=== PATIENT | male | born 1945 | race Caucasian/White ===

== ENCOUNTER 2018-11-06 10:54 | Emergency (ER) | payer OTHER, MEDICARE ==
[~2018-11-06] VITALS: Ht 180.3 cm; Wt 96.0 kg
[~2018-11-06 10:54] MED LIST: AMLO5TAB PO; ATOR10TA87 PO; DULO-31 PO; GABA-532 PO; GLIP5TAB13 PO; HYDR-4353 PO; INSU100C4 SQ; LANTUS SUBCUT; LISI1TAB13 PO; MELO15TA13 PO; METF1000 PO; PRAZ5CAP2 PO
[2018-11-06 11:30] LABS: BASOPHILS # (AUTO) 0.1 X10'3 (0-0.2); BASOPHILS % (AUTO) 0.4 % (0-1); EOSINOPHILS # (AUTO) 0.2 X10'3 (0-0.9); EOSINOPHILS % (AUTO) 1.1 % (0-6); HEMATOCRIT 42.7 % (42.0-52.0); HEMOGLOBIN 14.1 g/dl (14.0-17.9); LYMPHOCYTES # (AUTO) 2.4 X10'3 (1.1-4.8); LYMPHOCYTES % (AUTO) 16.6 % (21-51); MEAN CORPUSCULAR HEMOGLOBIN 27.6 PG (27.0-31.0); MEAN CORPUSCULAR HGB CONC 33.1 g/dL (33.0-36.5); MEAN CORPUSCULAR VOLUME 83.4 FL (78-98); MEAN PLATELET VOLUME 8.1 FL (7.4-10.4); MONOCYTES % (AUTO) 6.8 % (2-12); NEUTROPHILS # (AUTO) 11.1 X10'3 (1.8-7.7); NEUTROPHILS % (AUTO) 75.1 % (42-75); PLATELET COUNT 375 X10'3 (140-440); RED BLOOD COUNT 5.12 X10'6 (4.70-6.10); RED CELL DISTRIBUTION WIDTH 15.2 % (11.5-14.5); WHITE BLOOD COUNT 14.7 X10'3 (4.5-11.0)
[2018-11-06 11:32] LABS: CLARITY,URINE SLIGHTLY CLOUDY (Clear); COLOR,URINE YELLOW (Yellow); GLUCOSE, URINE 250 mg/dl (Neg); KETONES,URINE 40 mg/dl (Neg); LEUKOCYTE ESTERASE ,URINE NEGATIVE (Neg); NITRITES, URINE NEGATIVE (Neg); OCCULT BLOOD,URINE NEGATIVE (Neg); PH,URINE 6.5 (4.8-8.0); PROTEIN,URINE TRACE mg/dl (Neg)
[2018-11-06 11:36] LABS: UA COLLECTION TYPE CLN CATCH MIDSTREAM
[2018-11-06 11:38] LABS: SQUAMOUS EPITHELIAL CELL,UR FEW /LPF (FEW)
[2018-11-06 11:39] LABS: TRANSITIONAL EPI CELLS,URINE FEW /HPF
[2018-11-06 11:40] LABS: BACTERIA,URINE NONE SEEN /HPF (Neg); RBC,URINE 0-2 /HPF (0-2); WBC,URINE 0-4 /HPF (0-4)
[2018-11-06 11:41] LABS: MUCUS STRANDS MANY /LPF (Neg)
[2018-11-06 11:44] LABS: HYALINE CASTS 0-3 /LPF (NEGATIVE)
[2018-11-06 11:48] LABS: ALANINE AMINOTRANSFERASE 18 U/L (12-78); ALBUMIN 3.4 G/DL (3.4-5.0); ALBUMIN/GLOBULIN RATIO 0.8 (1.1-1.5); ALKALINE PHOSPHATASE 62 IU/L (46-116); ANION GAP 11 (8-16); ASPARTATE AMINO TRANSFERASE 9 U/L (10-37); BILIRUBIN,TOTAL 0.8 MG/DL (0.1-1.0); BLOOD UREA NITROGEN 27 MG/DL (7-18); CALCIUM 10.6 MG/DL (8.5-10.1); CHLORIDE 101 MMOL/L (99-107); GLUCOSE 216 MG/DL (70-104); LIPASE 58 U/L (73-393); POTASSIUM 4.5 MMOL/L (3.5-5.1); SODIUM 135 MMOL/L (135-145); TOTAL CARBON DIOXIDE 22.6 MMOL/L (24-32); TOTAL PROTEIN 7.7 G/DL (6.4-8.2); eGFR 74 ML/MIN
[2018-11-06 11:53] LABS: WAXY CASTS,URINE 0-3 /LPF (NEGATIVE)
[2018-11-06] MEDS: diatr meglu/diatrizoate 30ml oral sol.-(3 dose) bottle PO SCH ×2 (13:50→14:52)
[2018-11-06] MEDS ORDERED: morphine 4 MG/ML inj SYRINge IV ONE (15:00)
[2018-11-06] MEDS ORDERED: iohexol 300mg/ml 100ml inj. ONE (15:04)
[2018-11-06 15:46] VITALS: BP 167/92
== END 2018-11-06 16:11 | disposition home or self-care (01) ==
LOC: ER 10:55
DX: R10.33 Periumbilical pain (principal); R19.7 Diarrhea, unspecified; I10 Essential (primary) hypertension; E11.9 Type 2 diabetes mellitus without complications; Z88.0 Allergy status to penicillin; Z79.4 Long term (current) use of insulin; Z79.899 Other long term (current) drug therapy; Z98.84 Bariatric surgery status
CPT/HCPCS: 36415; 74177; 80053; 81001; 83690; 85025; 85610; 96374; 99284; J2270; Q9963; Q9967

== ENCOUNTER 2022-01-23 10:40 | Emergency (ER) | payer OTHER, MEDICARE ==
[~2022-01-23] VITALS: Ht 182.9 cm; Wt 102.3 kg
[~2022-01-23 10:40] MED LIST changes: -LISI1TAB13 PO; +LISI1TAB53 PO
[2022-01-23 10:48] VITALS: BP 123/63
== END 2022-01-23 13:43 | disposition home or self-care (01) ==
LOC: ER 10:41
DX: S20.212A Contusion of left front wall of thorax, initial encounter (principal); I10 Essential (primary) hypertension; E11.9 Type 2 diabetes mellitus without complications; G89.29 Other chronic pain; M54.50 Low back pain, unspecified; I50.9 Heart failure, unspecified; Z88.0 Allergy status to penicillin; Z88.5 Allergy status to narcotic agent; Z91.030 Bee allergy status; W19.XXXA Unspecified fall, initial encounter; Y93.89 Activity, other specified; Y92.89 Other specified places as the place of occurrence of the external cause; Y99.8 Other external cause status
CPT/HCPCS: 71046; 73130; 93005; 99284

== ENCOUNTER → 2022-08-31 | Day surgery (SDC) | payer MEDICARE, OTHER ==
[2022-08-24 10:36] LABS: PRE OP HEMOGLOBIN 13.3 g/dL (14.0-17.9); RED CELL DISTRIBUTION WIDTH 14.8 % (11.5-14.5)
[2022-08-24 10:38] LABS: BASOPHILS # (AUTO) 0.1 X10'3 (0-0.2); BASOPHILS % (AUTO) 0.7 % (0-1); EOSINOPHILS # (AUTO) 0.3 X10'3 (0-0.9); EOSINOPHILS % (AUTO) 2.1 % (0-6); LYMPHOCYTES # (AUTO) 2.5 X10'3 (1.1-4.8); LYMPHOCYTES % (AUTO) 18.7 % (21-51); MEAN CORPUSCULAR HEMOGLOBIN 28.1 PG (27.0-31.0); MEAN CORPUSCULAR HGB CONC 32.2 g/dL (33.0-36.5); MEAN CORPUSCULAR VOLUME 87.2 FL (78-98); MEAN PLATELET VOLUME 8.4 FL (7.4-10.4); MONOCYTES # (AUTO) 0.7 X10'3 (0-0.9); NEUTROPHILS % (AUTO) 73.5 % (42-75); PRE OP HEMATOCRIT 41.2 % (42.0-52.0); RED BLOOD COUNT 4.73 X10'6 (4.70-6.10)
[2022-08-24 10:49] LABS: ALBUMIN 3.6 G/DL (3.4-5.0); ALKALINE PHOSPHATASE 73 IU/L (46-116); BLOOD UREA NITROGEN 18 MG/DL (7-18); BUN/CREATININE RATIO 13.3 (10.0-20.0); CALCIUM 9.2 MG/DL (8.5-10.1); CHLORIDE 104 MMOL/L (99-107); CREATININE 1.35 MG/DL (0.60-1.10); PRE OP ALT 16 U/L (30-65); PRE OP ANION GAP 12 (8-16); PRE OP AST 23 U/L (10-37); PRE OP BILIRUB, TOTAL 0.5 MG/DL (0.0-1.0); PRE OP GLUCOSE 153 MG/DL (70-104); PRE OP POTASSIUM 5.4 MMOL/L (3.4-5.1); PRE OP SODIUM 137 MMOL/L (135-145); TOTAL CARBON DIOXIDE 20.6 MMOL/L (24-32); TOTAL PROTEIN 7.3 G/DL (6.4-8.2); eGFR 52 ML/MIN
[~2022-08-31] VITALS: Ht 182.9 cm; Wt 105.2 kg
[~2022-08-31] MED LIST changes: +ALOG25TA PO; +ASPI-529 PO; +BUPIVAcaine/PF 2.5 mg/ml (0.25%) 30ml vial ONE; +CLON0.1T2 PO; +DICL20GE TOP; +EMPA10TA PO; -GABA-532 PO; -GLIP5TAB13 PO; -INSU100C4 SQ; +INSU100V12 SQ; -LANTUS SUBCUT; +LIDOCAINE PATCH; +LIDOcaine 0.5% (5mg/ml) 50ml vial ONE; -LISI1TAB53 PO; +LISI40TA13 PO; -MELO15TA13 PO; +METF-438 PO; -METF1000 PO; +MIRT-116 PO; +NITR0.4T51 SL; +PANT-47 PO; -PRAZ5CAP2 PO; +SPIR25TA5 PO; +clindamycin 600mg/D5W 50ml 50 ML IV ONE; +famotidine 20mg tablet PO ONE; +fentaNYL/PF 50MCG/1 ML 2ML syringe ONE; +midazolam 1 mg/ML 2ml injection ONE; +propofol inj 20 ML IV ONE; +ringers solution, lacted 500 ML IV SCH
[2022-08-31 07:30] VITALS: BP 144/70
[2022-08-31 11:14] VITALS: BP 116/84
--- NOTE | 2022-08-31 11:14 | NUR ---
Received from OR via [facility] TO [facility], accompanied by Anesthesiologist DR PARHAM and report given by Anesthesiolgist. PT PRESENTS WITH PIV 20G RIGHT HAND, DRESSING ON LEFT WRIST AND ELBOW CDI. VSS. Addendum: 08/31/22 at 1126 by Dimple Healy - PAUL RN Amended: Links added.
[2022-08-31 11:20] VITALS: BP 116/84
[2022-08-31 11:30] VITALS: BP 120/75
[2022-08-31 12:04] VITALS: BP 120/75
== END | disposition home or self-care (01) ==
LOC: PAS 06:58
PROVIDERS: ATTEND Orthopaedic Surgery Hand Surgery
DX: G56.02 Carpal tunnel syndrome, left upper limb (principal); G56.22 Lesion of ulnar nerve, left upper limb; M41.80 Other forms of scoliosis, site unspecified; I48.91 Unspecified atrial fibrillation; I10 Essential (primary) hypertension; K21.9 Gastro-esophageal reflux disease without esophagitis; G89.29 Other chronic pain; G47.30 Sleep apnea, unspecified; G51.0 Bell's palsy; E11.9 Type 2 diabetes mellitus without complications; Z79.899 Other long term (current) drug therapy; Z79.82 Long term (current) use of aspirin; Z79.84 Long term (current) use of oral hypoglycemic drugs; Z88.0 Allergy status to penicillin; Z88.8 Allergy status to other drugs, medicaments and biological substances; Z87.891 Personal history of nicotine dependence; Z98.890 Other specified postprocedural states; Z98.84 Bariatric surgery status
CPT/HCPCS: 36415; 64718; 64721; 80053; 84132; 85025; 93005; J2250; J2704; J3010; J3490; J7030; J7120; Z7506; Z7512; 80047; A4215